=== PATIENT | female | born 1965 | race Caucasian/White ===

== ENCOUNTER 2017-11-16 10:41 | Emergency (ER) | payer OTHER ==
[~2017-11-16] VITALS: Ht 172.7 cm; Wt 68.0 kg
[2017-11-16 10:45] VITALS: BP 128/74
--- NOTE | 2017-11-16 11:14 | ED ANIMAL BITE/WOUND CHECK ---
History of Present Illness General Chief Complaint: Animal/Insect Bite Stated Complaint: BEE STINGS Source: patient Exam Limitations: no limitations Vital Signs & Intake/Output Vital Signs & Intake/Output Vital Signs Date Time Temp Pulse Resp B/P B/P Pulse O2 O2 Flow FiO2 Mean Ox Delivery Rate 11/16 1214 97.4 67 15 97 Room Air Room Air 11/16 1045 97.8 78 18 128/74 97 Room Air Room Air Allergies Coded Allergies: Penicillins (Intermediate, RASH 11/16/17) Triage Note: PT TO ED WITH MULITPLE BEE STINGS TO ARMS AND LEGS ABOUT 1 HOURS AGO, WENT TO STORE AND BOUGHT BENADRYL, TOOK 50MG. Triage Nurses Notes Reviewed? yes HPI: Patient is a 52 year old female who presents with multiple bee/wasp stings. Patient stated that shewas gardening this morning and accidently hit an underground bee/wasp nest. The patient reports 30+ stings on face, extremities, and trunk. The patient took 50mg of oral Benadryl and applied topical Benadryl before coming to ED. She currently reports pain and itchyness around bites as well as mild tingling in her lips and tongue. She denies any SOB,wheezing, CP, palpitations, or changes in vision. Past History Travel History Traveled to [place] past 21 day No Medical History Any Pertinent Medical History? 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 No Review of Systems Review of Systems Constitutional: Reports: no symptoms. EENTM: Reports: no symptoms. Respiratory: Reports: no symptoms. Cardiovascular: Reports: no symptoms. GI: Reports: no symptoms. Genitourinary: Reports: no symptoms. Musculoskeletal: Reports: no symptoms. Neurological/Psychological: Reports: no symptoms. Hematologic/Endocrine: Reports: no symptoms. Immunologic/Allergic: Reports: no symptoms. Comments Scattered wheels at bite sites. Physical Exam Physical Exam General Appearance: well developed/nourished, no apparent distress, alert, awake , comfortable Head: atraumatic Eyes: Bilateral: normal appearance, EOMI. Ears, Nose, Throat: normal pharynx, hearing grossly normal, no oropharyngeal edema Neck: normal inspection, supple, full range of motion, no stridor Respiratory: normal breath sounds Cardiovascular: regular rate/rhythm Peripheral Pulses: 2+ radial (R), 2+ radial (L), 2+ tibialis posterior (R), 2+ tibialis posterior ( L), 2+ dorsalis pedis (R), 2+ dorsalis pedis (L) Gastrointestinal: normal bowel sounds, soft, non-tender, no organomegaly Extremities: normal range of motion Neurologic/Psych: awake, alert, oriented x 3 Skin: Scattered wheels Progress Differential Diagnosis: bee stings Plan of Care: observe in ER Departure Departure Disposition: HOME OR SELF CARE Condition: Stable Clinical Impression Primary Impression: Bites and stings, insect Referrals: Tony CAMARA,Gabe Raymundo (PCP/Family) Additional Instructions: Return if he develops any shortness of breath, swelling in her throat and lips or for any other concerns. Departure Forms: Customer Survey General Discharge Information
== END 2017-11-16 12:14 ==
LOC: ERH 10:41
DX: T63.441A Toxic effect of venom of bees, accidental (unintentional), initial encounter (principal); F10.10 Alcohol abuse, uncomplicated